=== PATIENT | female | born 1970 | race Caucasian/White ===

== ENCOUNTER 2025-07-08 02:20 | Day surgery (SDC) | payer OTHER, SELFPAY ==
--- NOTE | 2025-07-05 07:33 | P.HP_ITS ---
H&P: HPI History of Present Illness Date/Time: 07/05/25 07:33 Chief Complaint: Excessive heavy bleeding Narrative: 55-year-old female admitted for hysteroscopy dilatation curettage and Mckenzie ablation. Risks and benefits of this procedure reviewed including not exclusive of , aspiration pneumonia, bleeding, transfusion, perforation injury to bowel, bladder, ureters, or other internal organs with need for open laparotomy. She received the ACOG handouts entitled hysteroscopy as well as dilatation curettage respectively. She also received the Mckenzie handout. She had all questions answered and asked to proceed Review of Systems Review of Systems: All systems reviewed & are unremarkable except as noted in HPI and below Meds Home Medications and Allergies Allergies Allergy/AdvReac Type Severity Reaction Status Date / Time No Known Allergies Allergy Unknown Unverified 11/24/08 13:32 NA Allergy Unknown Uncoded 12/28/08 15:54 Exam Const: General: cooperative, healthy appearing and comfortable Nutritional Appearance: average body habitus Orientation/consciousness: oriented to p erson, oriented to place and oriented to time HENMT: Head: normal to inspection Resp: Effort & Inspection: normal respiratory effort Cardio: Rate: regular rate Rhythm: regular rhythm Heart sounds: S1 normal heart sound present and S2 normal heart sound present GI: Inspection: normal to inspection Auscultation: normal bowel sounds : External Female Exam: normal external appearance Speculum Exam - Vagina: normal appearance of the vagina Speculum Exam - Cervix: normal appearance of the cervix Bimanual exam- vagina & uterus: non-tender Bimanual Exam- Adnexa, other: normal adnexae Assessment and Plan Assessment and plan (1) Postmenopausal bleeding: Code(s): N95.0 - Postmenopausal bleeding Status: Acute Plan Proceed with hysteroscopy/dilatation curettage/Mckenzie ablation
--- NOTE | 2025-07-05 11:13 | SUR.PREOP ---
[facility] has started construction of its new state of the art ER which will open Spring 2026. With this, we anticipate parking may be a challenge for some our surgical patients and families. Parking spaces are limited but are available for all Surgical, obstetrics, and ER patients sharing this lot. If you arrive and find you are having a hard time finding a parking space, please note that we understand the challenges, please drive around the hospital and park near Hospital Entrance 1. When you enter this entrance, you can ask a volunteer to direct or take you back to the surgical waiting area to check in. We appreciate everyone?s understanding of these expected challenges while we build for your future. Report to the Outpatient Waiting Room, entrance under the green pavilion located off [address], at time _830AM__ on date _07/08/25_. Planned Procedure Time:_1030AM_.? Time changes happen often and if your time is changed the preop area will call you the afternoon before. - You and your visitor will be asked to self-screen and do not enter if you have any COVID symptoms. Please call surgeon if you need to reschedule. - A mask is optional within the hospital at this time. Patients may have clear liquids (water, carbonated beverages, clear teas, apple juice) until 3 hours prior to surgery with a maximum of 20 ounces. - No food from midnight until time of surgery and no smoking, or chewing tobacco (or any form of nicotine). No chewing gum, candy or mints. Take only the following medications with a SIP of water on the morning of surgery: __levothyroxine__ DO NOT STOP ANY OF YOUR OTHER PRESCRIPTION MEDICATIONS PRIOR TO SURGERY EXCEPT THE FOLLOWING Hold all vitamins and supplements for 3 days per anesthesiologist. Medications to discontinue per physician __none____ Date to take last dose of vitamins ___today immediately. ___ Please no make-up, nail estonian, hairspray, perfume, deodorant, or body powder the day of surgery.? No jewelry (including any body piercings) or valuables the day of surgery, leave them at home.? Please take a shower or bath the night before, or the morning of, surgery with an antibacterial soap.? Wear comfortable, loose fitting clothing.? - Jewelry must be removed prior to entering the operating room.? Rings and piercings that are not removed may be cut off. - The hospital will not accept responsibility for valuables.? - Please leave all valuables, including medications, at home the day of surgery. If you are going home after surgery, a licensed cdl bulk driver must drive you home.? - NO public transportation without another adult if you receive anesthesia. - We recommend that an adult stay with you for 24 hours following discharge. - We also recommend that you do not drive, make important decision, drink alcoholic beverages, or take any drugs that were not prescribed by your health care provider for at least 24 hours after your discharge time. Follow any additional instructions given to you from your surgeon. Telephone instructions given to _Kim_and asked if any additional questions and then verbalized understanding. Patient advised to call surgeon office or pre surgery nurse liaison [phone] if any additional questions.
[2025-07-05 11:24] VITALS: BMI 26.2
--- NOTE | 2025-07-08 06:48 | WPDHPUPDATE1 ---
History and Physical Update Update Date/Time: 07/08/25 06:48 History and Physical has been reviewed, including an updated exam of the patient. There are NO changes in the patient's condition. Risks, benefits, and alternatives have been discussed and questions answered. Patient agrees to proceed with procedure.
[2025-07-08 08:45] VITALS: BP 120/69; PULSE 59; RESP 16; TEMP 36.6; O2SAT 100
[2025-07-08] MEDS: ACETAMINOPHEN 500 MG TABLET 1000 MG PO (09:06)
[2025-07-08] MEDS: LACTATED RINGERS 1,000 ML 30 ML IV CONT (09:13)
[2025-07-08 09:22] LABS: Hematocrit 43.4 % (37.0-47.0); Hemoglobin 14.1 g/dL (12.0-15.0)
[2025-07-08 09:44] LABS: BEDSIDEPREGUCG Negative (Negative)
--- NOTE | 2025-07-08 10:00 | WPDANESEPPF ---
Anes - Initial Pre Proc Eval Procedure: Operation Date: 07/08/25 10:30 Proposed Procedures p Hysteroscopy Dilation and Curettage with Mckenzie Endometrial Ablation - Nahun Bashir MD Date/Time: 07/08/25 10:00 Surgeon: Nahun Bashir MD Pre Op Diagnosis: post menopausal bleeding Patient Data Age: 55 Gender: F Height: 1.73 m Weight: 79.2 kg Last Vital Signs Temp 36.6 C 07/08/25 08:45 Pulse 59 L 07/08/25 08:45 Resp 16 07/08/25 08:45 BP 120/69 07/08/25 08:45 Pulse Ox 100 07/08/25 08:45 O2 Del Method Room Air 07/08/25 08:45 Allergies Allergy/AdvReac Type Severity Reaction Status Date / Time No Known Allergies Allergy Unknown Verified 07/05/25 11:17 Home Medications ?Medication ?Instructions ?Recorded ?Confirmed ?Type berberine-herbal drugs capsule 1 cap PO DAILY 07/05/25 07/08/25 History cholecalciferol (vitamin D3) 50 2,000 unit PO ONCE 07/05/25 07/08/25 History mcg (2,000 unit) capsule (D3-2000) levothyroxine 50 mcg tablet 50 mcg PO DAILY 07/05/25 07/08/25 History mecobalamin (vitamin B12) 5,000 5,000 mcg PO DAILY 07/05/25 07/08/25 History mcg disintegrating tablet progesterone micronized 200 mg 200 mg PO DAILY 07/05/25 07/08/25 History capsule saw palmetto 500 mg capsule 500 mg PO DAILY 07/05/25 07/08/25 History testosterone 50 mg implant pellet 50 mg implant MONTHLY 07/05/25 07/05/25 History hydrocodone 5 mg-acetaminophen 325 1 tablet PO Q4H PRN pain #14 tabs 07/08/25 Rx mg tablet Laboratory Tests 07/08/25 07/08/25 08:53 09:17 Hgb 14.1 g/dL (12.0-15.0) Hct 43.4 % (37.0-47.0) POC Urine HCG, Qual Negative (Negative) Patient hx anesthesia problems: none Family hx anesthesia problems: none Results Review: All pre-operative results and documents have been reviewed as part of the pre-operative evaluation. 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 Informed Consent: The patient's anesthetic plan and its attendant risks and benefits were discussed with the patient/family/POA. Questions were solicited and answers provided to the satisfaction of the patient/family/POA.
[2025-07-08] MEDS: LIDOCAINE 1% LOCAL INJ 10 ML VIAL INFILTRATE (11:11)
--- NOTE | 2025-07-08 11:16 | S_PTH ---
PATIENT: Dottie Iglesias LOC: [facility]#:[id number] AGE/SX: 55/F ROOM: RE07/08/[address]: Nahun Bashir MD : 1970 BED: DIS: 07/08/2025 SPEC #: [id number] RECD: 07/08/25 11:53 STATUS: GILMAR REQ #: [id number] MARY: 07/08/25 11:[address]: Nahun Johnson DEPT: [facility] Surgical RECD BY: Adele Santo ENTERED: 07/08/25 11:53 SP TYPE: Surgical OTHR DR: Jadiel Martinez, Tissues: A - Endometrial Curettings Procedures: Hematoxylin and Eosin Stain Gross and Microscopic Level 4
--- NOTE | 2025-07-08 11:29 | P.OP_ITS ---
Procedure Note - Detailed Date of Procedure 07/08/25 Pre-op Diagnosis post menopausal bleeding Post-op Diagnosis Same Procedure Performed Hysteroscopy/dilatation curettage/Mckenzie ablation Surgeon Nahun Bashir MD Anesthesia MAC and Local Indications 55-year-old female postmenopausal bleeding Findings Benign endometrium. Normal-appearing tubal ostia bilaterally Description of Procedure The patient was prepped and draped in the normal sterile fashion placed in the dorsal lithotomy position. Under excellent IV sedation weighted speculum placed in posterior fornix vagina. Anterior lip of the cervix grasped with a single- tooth tenaculum. 2.5cc 1% xylocaine anesthesia distributed at 2, 4, 8, 10:00 a.m. respectively. Uterus sounded to7.5cm. Serial dilatation fragmented dilators performed followed by passage of the 5mm visualizing hysteroscope using normal saline as visualizing medium. Very benign appearing endometrium was seen. Each fallopian tube os could be seen. The this was withdrawn the uterus was scraped over the entire 360? with minimal tissue the. The Mckenzie instrument was placed in the uterus and burned for 120seconds. The instrument withdrawn was withdrawn. The hysteroscope was reinserted and a good burn was noted photo documentation was undertaken. Instruments were withdrawn the patient went recovery in satisfactory blood loss estimated [id number]. All sponge, needle, instrument counts were correct per there were no immediate complications Estimated Blood Loss 5 Drains No Packing No Pathology Yes Complications No immediate complications Condition Stable Disposition PACU
[2025-07-08 11:30] VITALS: BP 96/64; PULSE 67; RESP 12
[2025-07-08 12:00] VITALS: BP 110/67; PULSE 55; RESP 16
[2025-07-08 12:20] VITALS: BP 113/74; PULSE 53; RESP 16
== END 2025-07-08 12:21 | disposition home or self-care (01) ==
PROVIDERS: PCP Internal Medicine; Visit Provider Obstetrics & Gynecology
PROC: 0U5B8ZZ Destruction of Endometrium, Via Natural or Artificial Opening Endoscopic (ICD-10-PCS; CPT 58563; principal; 2025-07-08 10:30)
DX: N95.0 Postmenopausal bleeding (principal); E06.3 Autoimmune thyroiditis; Z79.891 Long term (current) use of opiate analgesic
CPT/HCPCS: 58563; 36415; 85014; 85018; 88305; A9270; J1100; J1885; J2003; J2250; J2405; J2704; J3010; J7120